=== PATIENT | male | born 2000 | race Caucasian/White ===

== ENCOUNTER → 2018-03-23 | Day surgery (SDC) | payer OTHER ==
[~2018-03-23] VITALS: Ht 172.7 cm; Wt 108.9 kg
--- NOTE | 2018-03-23 10:25 | Operative Report ---
Operative/Inv Procedure Report Surgery Date: 03/23/18 Name of Procedure: Repair left thumb metacarpophalangeal joint ulnar collateral ligament. Pre-Operative Diagnosis: Left thumb metacarpophalangeal ulnar collateral ligament rupture. Post-Operative Diagnosis: Same. Estimated Blood Loss: scant Surgeon/Dyehouse Worker: Jignesh WESTBROOK,Randolph/IVÁN Sutton Anesthesia: laryngeal mask airway, block Monitors: EKG/blood pressure/oxygen saturation. IV Fluids: Lactated Ringer's. Implants: Arthrex 2.4 mm x 6.5 mm suture tacks with 2-0 FiberWire 2. Urine Output: None. Drains: None. Specimens: None. Microbiology: None. Tourniquet: 33 minutes at 275 mmHg. Complications: None known. Condition: Stable. Operative Indication: The patient is a 18-year-old male who sustained a fall onto an outstretched left hand roughly 10 days ago resulting in an injury to his left thumb. He did have immediate pain and rapid swelling. He went to an urgent care facility in [place], [place] where he was provisionally diagnosed with a probable rupture of the thumb MP joint ulnar collateral ligament. An MRI was ordered and a more focused follow-up MRI was also obtained which did confirm a rupture of the thumb MP joint ulnar collateral ligament from the base of the proximal phalanx. There was a small avulsion fracture of a minor bone fragment along with retraction of the ligament proximally into the adductor aponeurosis with presumed probable Stener lesion felt to be present. The patient sought medical attention with me at the end of last week with his MRI in hand. We did discuss the risks and benefits and expected outcomes of nonoperative management of his ulnar collateral ligament rupture versus that of operative intervention with repair of the ligament back down to the ulnar base of the proximal phalanx of the thumb using suture anchors. I did recommend surgical intervention as opposed to nonoperative management of the ulnar collateral ligament injury due to the significant retraction of the ligament into the soft tissues under the abductor aponeurosis. I did indicate that this retraction would make it less likely that he would be able to heal the injury without residual instability and pain related to the same at the MP joint. After discussion of the options and answering all questions the patient did decide that he would like to move forward with surgical management as was recommended with ulnar collateral ligament repair with suture anchors. Surgical consent was obtained. Operative/Procedure Note Note: The patient was brought to the operating room and placed on the operating room table in the supine position. General anesthesia via LMA was induced by the anesthesiologist. The patient was given a dose of IV antibiotics for infection prophylaxis. A well-padded tourniquet was applied to the proximal portion of the left arm. All bony prominences were well-padded. The patient underwent administration of a left-sided scalene block by the anesthesia staff to help with prolonged postoperative pain relief. Once the block was completed the table was turned and the patient was positioned with his left arm outstretched on a radiolucent hand table. The left upper extremity was then prepped and draped in the usual sterile fashion. The skin along the ulnar side of the patient's thumb MP joint was marked for a longitudinal S shaped curvilinear incision extending along the mid ulnar axis distally along the proximal phalanx and then curving in a proximal and dorsal direction and then proximally along the ulnar side of the extensor tendon. After the skin was marked the extremity was exsanguinated and the pneumatic tourniquet was inflated to a pressure of 2075 medleys mercury. A skin incision was created sharply with a #15 blade scalpel. The skin and superficial subcutaneous tissues were then spread bluntly with blunt tipped scissors. Hemostasis was achieved using a needle tip electrocautery. Soft tissue flaps were raised in a dorsal and volar direction with blunt tipped scissors. We did identify and dissect out and protect the superficial radial nerve branch to the medial aspect of the thumb MP joint and make sure that the nerve was retracted in a palmar direction for protection. The abductor aponeurosis was divided longitudinally with scissors just palmar to the attachment site of the extensor lópez and extensor tendon. This was allowed to retract in a palmar direction. We now had exposure of the capsule and ulnar collateral ligament. The ulnar collateral ligament had ruptured off of the ulnar base of the proximal phalanx and had retracted and was found under the proximal portion of the abductor a perosis. There was some early healing response and scar tissue formation about the ligament. The ligament was freed up with blunt tip scissor dissection and early scar tissue was dissected off of the ligament to "skeletonized" the ligament. The ligament was inspected and was found to be quite vitale and otherwise healthy. I did not appreciate the small bony avulsion fracture fragment within the ligament that I could see. We opened the joint by radially deviating the MP joint and inspected the articular cartilage which appeared to be in good condition. The joint was overtly unstable on stress testing of the ulnar side of the MP joint. We next removed the soft tissue remnants off of the ulnar base of the proximal phalanx with a rongeur and with sharp dissection. The bone was freshened up slightly but not decorticated. We irrigated the joint and the soft tissues. We now turned our attention towards repair of the ligament itself. We placed 2 Arthrex 2.4 mm x 6.5 mm microsuture tacks loaded with 2-0 FiberWire using the proper size drill bit to make the drill holes in the base of the proximal phalanx orienting the drill hole so that it would not violate the articular surface of the base of the proximal phalanx. After the drill holes were created the sutures were impacted per protocol into the bone. The sutures were removed from the hand holders and the anchors were set by pulling up on the sets of sutures. The anchors were quite well fixed within the bone. We next used the double loaded FiberWire needles to place the sutures in a deep to superficial direction through the distal end of the ulnar collateral ligament. The first set of sutures was placed in the more palmar aspect of the ligament and the second set of sutures was placed in the more dorsal aspect of the ligament. The drill holes that were placed had been placed with one slightly dorsal to the mid ulnar axis of the base of the proximal phalanx. The other was placed volar to this so that the ligament could be repaired down in anatomic alignment with both bands of the ligament back down to bone. With the suture material now placed through the distal and of the ulnar collateral ligament 2 we next tied down the sets of sutures manually. This dimpled the distal end of the ligament under the sutures and the ligament was compressed nicely down to the prepared bone at the ulnar base of the proximal phalanx accomplish a nice suture anchor repair of the ligament down to bone. We used some of the 2-0 FiberWire still located within the anchor to reinforce the repair by suturing the dorsal capsule down to the dorsal aspect of the ulnar collateral ligament. I did not attempt any repair on the volar side of the capsule. The wound was irrigated. The abductor a perosis was then repaired back to its dorsal attachment site near the extensor tendon using 4-0 Vicryl placed in interrupted simple fashion. The wound was irrigated. The tourniquet was deflated and hemostasis was achieved with manual pressure and electrocautery. The wound was irrigated again. The soft tissue repair from here consisted of direct approximation of the skin margins using 3-0 Prolene placed in running subcuticular fashion. The wound was washed and dried. Mastisol was applied about the wound margins. The subcuticular skin repair was then augmented with Steri-Strips. The wound was washed and dried again. Adaptic dressing was placed over the Steri-Strip line followed by fluffed open sterile gauze dressings over the wound and into the first webspace and about the thumb ray. We placed some additional fluffed open gauze dressings over the dorsum of the hand and into the palm. This was overwrapped with some soft gauze wrapping from the distal palmar crease distally and about the thumb distally as well and then extending proximally to the mid forearm. We next overwrapped this with a single layer of web roll. We next applied a radial gutter thumb spica short arm splint to immobilize the thumb ray in neutral position through the MP joint. This was held in place with Luis bandages and allowed to set up in this position. The left upper extremity was then placed into a Chente pillow for elevation. The patient was awakened from general anesthesia and transferred to the stretcher and brought to the recovery room in stable condition having tolerated the procedure well. Findings: Distal ulnar collateral ligament rupture off of the ulnar base of the proximal phalanx and displaced/retracted proximally under the abductor apponeurosis ( Stener Lesion). Discharge Disposition: PACU
== END ==
LOC: STS 02:08
DX: S53.32XA Traumatic rupture of left ulnar collateral ligament, initial encounter (principal); W18.30XA Fall on same level, unspecified, initial encounter; E66.9 Obesity, unspecified
CPT/HCPCS: J0131; J0690; J1885; J2250